=== PATIENT | male | born 1960 | race Caucasian/White ===

== ENCOUNTER 2023-05-30 18:21 | Emergency (ER) | payer BC ==
[~2023-05-30] VITALS: Ht 177.8 cm; Wt 81.8 kg
[~2023-05-30 18:21] MED LIST: ASPIRIN 81M81 MG/TA2 PO; BRILINTA90 MG PO; IMDUR 30MG30 MG/TAB PO; LIPITOR 80MG80 MG PO; TOPROL XL 25MG25 MG PO
[2023-05-30 18:26] VITALS: TEMP 98.1
[2023-05-30 19:32] VITALS: BP 198/97; PULSE 69
== END 2023-05-30 19:38 | disposition home or self-care (01) ==
LOC: COL.ER 18:21
DX: I10 Essential (primary) hypertension (principal); I25.2 Old myocardial infarction; Z79.899 Other long term (current) drug therapy; Z79.02 Long term (current) use of antithrombotics/antiplatelets; Z95.5 Presence of coronary angioplasty implant and graft